=== PATIENT | male | born 1945 | race Caucasian/White ===

== ENCOUNTER → 2018-09-22 | Outpatient (CLI) | payer OTHER | LOC: BHFA 10:15 | PROVIDERS: ATTEND Nurse Practitioner Adult Health | DX: I25.10 Atherosclerotic heart disease of native coronary artery without angina pectoris (principal); I10 Essential (primary) hypertension; E78.5 Hyperlipidemia, unspecified; Z95.5 Presence of coronary angioplasty implant and graft ==

== ENCOUNTER 2018-10-08 11:24 | Day surgery (SDC) | payer OTHER ==
[2018-10-08] MEDS ORDERED: ASPIRIN EC 325 MG TAB PO ONE ×2 (11:27→11:55)
[2018-10-08] MEDS ORDERED: DIAZEPAM 5 MG TAB PO ONE (11:27)
[2018-10-08] MEDS ORDERED: FAMOTIDINE 20 MG TAB PO ONE (11:27)
[2018-10-08] MEDS ORDERED: NS 1,000 ML IV ONE (11:27)
[2018-10-08] MEDS ORDERED: diphenhydrAMINE 25 MG CAP PO ONE ×2 (11:27→11:54)
[2018-10-08] MEDS ORDERED: FAMOTIDINE 20 MG TAB ONE (11:55)
[2018-10-08] MEDS ORDERED: DIAZEPAM 5 MG TAB ONE (11:57)
[2018-10-08] MEDS ORDERED: LIDOCAINE 1% 300 MG/30 ML SDV ONE (12:17)
[2018-10-08] MEDS ORDERED: MIDAZOLAM 2 MG/2 ML VIAL ONE (12:18)
[2018-10-08] MEDS ORDERED: fentaNYL 100 MCG/2 ML INJ ONE (12:18)
[2018-10-08] MEDS ORDERED: IOPAMIDOL (ISOVUE-370) 150 ML BTL IV ONE (12:19)
[2018-10-08 12:31] LABS: PLATELET COUNT 223 10^3/uL (150-400)
[2018-10-08 12:44] LABS: INR 0.99 (0.83-1.16); PROTIME(PATIENT) 13.3 SEC (12.0-15.0)
--- NOTE | 2018-10-08 13:25 | PDPROPOC ---
Sedation Plan of Care Sedation Plan of Care: vital signs stable, mental status noted, patient educated of risks, benefits, alternatives, patient can tolerate sedation ASA Classification: ASA 2 Planned drugs: fentanyl, midazolam Mallampati Score: Class 1 Mallampati Reference Image: Patient passed 3-3-2 rule?: Yes
--- NOTE | 2018-10-08 13:25 | PDHPUP ---
History & Physical Update H&P update statement: This history and physical update is based on an assessment of the patient which was completed after admission or registration (within 24 hours), but prior to the surgery/procedure. H&P update: H&P reviewed & patient examined, no change in patient's condition since H&P completed
[2018-10-08] MEDS ORDERED: HEPARIN 10,000 UNIT/10 ML MDV (1,000 UNIT/ML) ONE (13:37)
[2018-10-08] MEDS ORDERED: VERAPAMIL 5 MG/2 ML VIAL ONE (13:37)
--- NOTE | 2018-10-08 14:02 | PDDXCAT ---
Diagnostic Cath Note - . Date: 10/08/18 Pbx Operator: Malik Indication: Class I/II angina, intolerance to med therapy or failure to respond - Procedure Access: right wrist Procedure: left heart catheterization, coronary angiography, left ventriculogram - Materials Left Heart Cath size: 5F Left Heart Cath materials: pigtail, other ([place]) - Findings-Left Heart Catheterization LM: Unobstructed LAD: Stents widely patent. Diagonal has reconstituted self from last angiogram of 2002 LCX: Dominant vessel giving rise to the posterior descending coronary artery RCA: Non dominant: 100% occluded with bridging collaterals. EDP: 12 mm of mercury LVEF: 70% Wall motion: None Complications: None Estimated blood loss: <50ml Closure method: TR Band Assessment: Patent LAD stent. Chronically occluded nondominant right coronary likely responsible for abnormal stress test. Normal LV systolic function with normal filling pressures Plan: Continue aggressive secondary prevention with clinical follow-up Patient Problems: Problems Problem Status Onset Hypoxia Active Asthma Active Fever Active Dyspnea Active
--- NOTE | 2018-10-08 19:26 | CPEKG ---
Test Reason : OPEN Blood Pressure : / mmHG Vent. Rate : 070 BPM Atrial Rate : 072 BPM P-R Int : 146 ms QRS Dur : 089 ms QT Int : 415 ms P-R-T Axes : 012 028 -09 degrees QTc Int : 448 ms Sinus rhythm Borderline T abnormalities, inferior leads Confirmed by Faith Mills ([id number]) on 10/08/2018 7:26:11 PM Referred By: Confirmed By:Faith Mills
== END 2018-10-08 17:48 | disposition home or self-care (01) ==
LOC: FCATH 11:24
PROVIDERS: ATTEND Internal Medicine Interventional Cardiology
PROC: 4A023N7 Measurement of Cardiac Sampling and Pressure, Left Heart, Percutaneous Approach (ICD-10-PCS; principal; 2018-10-08)
PROC: B2111ZZ Fluoroscopy of Multiple Coronary Arteries using Low Osmolar Contrast (ICD-10-PCS; 2018-10-08)
PROC: B2151ZZ Fluoroscopy of Left Heart using Low Osmolar Contrast (ICD-10-PCS; 2018-10-08)
DX: I25.10 Atherosclerotic heart disease of native coronary artery without angina pectoris (principal); I25.82 Chronic total occlusion of coronary artery; I12.9 Hypertensive chronic kidney disease with stage 1 through stage 4 chronic kidney disease, or unspecified chronic kidney disease; N18.9 Chronic kidney disease, unspecified; I25.2 Old myocardial infarction; E78.5 Hyperlipidemia, unspecified; J45.20 Mild intermittent asthma, uncomplicated; Z95.5 Presence of coronary angioplasty implant and graft; Z79.82 Long term (current) use of aspirin
CPT/HCPCS: 78452; 93005; 93017; 93458; A9500; C1769; J1644; J2250; J3010; Q9967

== ENCOUNTER → 2018-10-22 | Outpatient (CLI) | payer OTHER | LOC: FIMAGING 10:01 | PROVIDERS: ATTEND Internal Medicine Critical Care Medicine | DX: R06.02 Shortness of breath (principal); R53.1 Weakness; J45.909 Unspecified asthma, uncomplicated; M47.9 Spondylosis, unspecified ==

== ENCOUNTER → 2018-11-20 | Outpatient (CLI) | payer OTHER | LOC: FIMAGING 08:46 | PROVIDERS: ATTEND Psychiatry & Neurology Neurology | DX: Z98.1 Arthrodesis status (principal); M53.82 Other specified dorsopathies, cervical region; M50.31 Other cervical disc degeneration, high cervical region ==

== ENCOUNTER → 2019-01-23 | Outpatient (CLI) | payer OTHER | LOC: FIMAGING 08:15 | PROVIDERS: ATTEND Internal Medicine Critical Care Medicine | DX: J84.10 Pulmonary fibrosis, unspecified (principal); I25.10 Atherosclerotic heart disease of native coronary artery without angina pectoris; J45.909 Unspecified asthma, uncomplicated; Z95.5 Presence of coronary angioplasty implant and graft ==

== ENCOUNTER 2019-03-23 20:59 | Inpatient (IN) | payer OTHER ==
--- NOTE | 2019-03-23 21:09 | EDPHY ---
H & P Time Seen by Provider: 03/23/19 21:00 HPI/ROS: CHIEF COMPLAINT: Syncope and head injury HISTORY OF PRESENT ILLNESS: EMS was called when the was down stairs and heard a "thud" upstairs in the bathroom. When EMS arrived he was face down in the bathroom. No seizure activity reported. The patient does not remember falling and does not recall how he got on the floor of the bathroom. He specifically does not recall any prodrome. Currently just feels a little bit dizzy and lightheaded. On arrival he complains of a left tooth pain anterior, and some pain around his left face. Denies chest pain or shortness of breath. No neck or back pain and no weakness or numbness in extremities. REVIEW OF SYSTEMS: Eye: no change in vision ENT: no sore throat Cardiac: HPI Pulmonary: no cough or SOB Abdomen: no vomiting, no abdominal pain. Has had some recent diarrhea. Musculoskeletal: no back pain Skin: Abrasion on the nose Neuro: no headache Constitutional: no fever : no urinary symptoms A comprehensive 10 point review of systems is otherwise negative aside from elements mentioned in the history of present illness. PAST MEDICAL HISTORY: Coronary disease with stenting, previous syncope which was thought to be vasovagal in 2008, nephrolithiasis Social history: General Appearance: Alert and conversant, cooperative. Eyes: No scleral icterus. Pupils equal reactive extraocular motion intact. ENT, Mouth: Normal mucous membranes. No tongue laceration or abrasion. Chipped Walker 1 left front incisor without evidence of root exposure. Respiratory: Normal respiratory effort, breath sounds equal, lungs are clear to auscultation. Cardiovascular: Regular rate and rhythm. Gastrointestinal: Abdomen is soft and non tender. Neurological: Alert, face symmetric, normal motor and sensory in extremities. Oriented to place but not to year. Poor short-term memory. Does not remember the event. Skin: Superficial 1 cm laceration on the bridge of the nose. Musculoskeletal: No midline spinal or extremity tenderness. Psychiatric: Not agitated. Emergency Department course/MDM: EKG initially shows sinus rhythm without ischemic changes. Head CT for head trauma given age and loss of consciousness. Did not clear cervical spine as he is not oriented x3. 956: Negative head and cervical spine CT for trauma per Dr. Macias. Admission for syncope in a patient with known coronary disease, cardiac monitoring. Likely has some element of dehydration with decreased CO2, elevated BUN and creatinine. IV normal saline 1 L given in the ED for syncope, possible dehydration, history of recent diarrhea. Smoking Status: Never smoked Constitutional: Initial Vital Signs Temperature (C) 36.7 C 03/23/19 21:03 Heart Rate 73 03/23/19 21:03 Respiratory Rate 18 03/23/19 21:03 Blood Pressure 108/73 03/23/19 21:03 O2 Sat (%) 97 03/23/19 21:03 O2 Delivery Mode Room Air Allergies/Adverse Reactions: No Known Allergies Allergy (Verified 03/23/19 21:02) Home Medications: Medication Instructions Recorded Azelastine [Astelin Nasal Bradley 1 sprays EACHNARE BID 05/16/12 (RX)] Ramipril [Altace 2.5mg (RX)] 2.5 mg PO DAILY 05/16/12 Aspirin [Aspirin 81mg (*)] 81 mg PO DAILY 10/08/18 Albuterol Sulfate [Proair Hfa] 1 - 2 puffs IH Q4-6PRN PRN 03/23/19 Levothyroxine [Synthroid 75 mcg 75 mcg PO DAILY06 03/23/19 (*)] Metoprolol Tartrate [Lopressor 25 12.5 mg PO BID 03/23/19 mg (*)] Pantoprazole Sodium [Protonix 40mg 40 mg PO HS 03/23/19 (*)] Pravastatin Sodium 20 mg PO DAILY 03/23/19 diphenhydrAMINE [Benadryl 25 MG 50 mg PO HS 03/23/19 (*)] predniSONE 7.5 mg PO DAILY 03/23/19 Medical Decision Making - Diagnostics EKG Interpretation: 12-lead EKG interpreted by me; official reading is in computer system. My interpretation is sinus rhythm without ischemic changes. Imaging Results: Imaging Impressions Cervical Spine CT 03/23/19 21:09 Impression: 1. Negative for intracranial posttraumatic sequela. 2. Elderly brain with atrophy and probable white matter small vessel disease. CT Cervical Spine Without Contrast History: Trauma. Technique: Multislice helical CT through the cervical spine without contrast from the skull base to T1. Soft tissue and bone evaluation is performed. Sagittal and coronal reconstructions are obtained and reviewed. Dose reduction techniques were utilized. Findings: Negative for fracture. There is straightening of the normal cervical curvature associated with anterior cervical fusion from C4 to the C6-C7 level. Prevertebral soft tissues appear normal. There is reversal the normal cervical curvature. Multilevel degenerative changes are seen with facet and uncovertebral arthropathy resulting in neural foraminal impingement at multiple levels. There is bony spurring at the C4-C5 level which results in canal stenosis more pronounced towards the right side. Impression: Negative for fracture with multilevel degenerative changes noted. Results called and discussed with DOLLY BOYKIN M.D. on 03/23/2019 at 21:55. Head CT 03/23/19 21:09 Impression: 1. Negative for intracranial posttraumatic sequela. 2. Elderly brain with atrophy and probable white matter small vessel disease. CT Cervical Spine Without Contrast History: Trauma. Technique: Multislice helical CT through the cervical spine without contrast from the skull base to T1. Soft tissue and bone evaluation is performed. Sagittal and coronal reconstructions are obtained and reviewed. Dose reduction techniques were utilized. Findings: Negative for fracture. There is straightening of the normal cervical curvature associated with anterior cervical fusion from C4 to the C6-C7 level. Prevertebral soft tissues appear normal. There is reversal the normal cervical curvature. Multilevel degenerative changes are seen with facet and uncovertebral arthropathy resulting in neural foraminal impingement at multiple levels. There is bony spurring at the C4-C5 level which results in canal stenosis more pronounced towards the right side. Impression: Negative for fracture with multilevel degenerative changes noted. Results called and discussed with DOLLY BOYKIN M.D. on 03/23/2019 at 21:55. Imaging: Discussed imaging studies w/ call out clerk Radiologist Procedures: Procedure: Laceration repair. Verbal consent was obtained from the patient. The 1 cm laceration on the bridge of the nose was cleaned with standard emergency department protocol, draped and explored. There were no deep structures involved. No foreign body found. The wound was repaired with wound adhesive. The wound repair was simple. Excellent hemostasis was obtained. Wound care instructions were discussed and the patient was warned regarding scarring. The procedure was performed by myself. Differential Diagnosis: Differential diagnosis considered for syncope including but not limited to vasovagal syncope, arrhythmia, dehydration, and blood loss. Differential diagnosis considered for head injury including but not limited to concussion, skull fracture, intraparenchymal contusion, subarachnoid, subdural and epidural hematoma. Consult/Admit Bed Type: Dr. Pnen 9809 - Data Points Laboratory Results: Laboratory Results 03/23/19 21:35 03/23/19 21:35 03/23/19 03/23/19 03/23/19 22:02 21:37 21:35 WBC RBC Hgb Hct MCV MCH MCHC RDW Plt Count MPV Neut % (Auto) Lymph % (Auto) Sandoval % (Auto) Eos % (Auto) Baso % (Auto) Nucleat RBC Rel Count Absolute Neuts (auto) Absolute Lymphs (auto) Absolute Monos (auto) Absolute Eos (auto) Absolute Basos (auto) Absolute Nucleated RBC Immature Gran % Immature Gran # Sodium 133 mEq/L L mEq/L (135-145) Potassium 4.6 mEq/L mEq/L (3.5-5.2) Chloride 104 mEq/L mEq/L (97-110) Carbon Dioxide 16 mEq/l L mEq/l (22-31) Anion Gap 13 mEq/L mEq/L (6-14) BUN 32 mg/dL H mg/dL (7-23) Creatinine 1.5 mg/dL H mg/dL (0.7-1.3) Estimated GFR 46 Glucose 116 mg/dL H mg/dL (70-100) Calcium 9.5 mg/dL mg/dL (8.5-10.4) POC Troponin I 0.00 ng/mL ng/mL (0.00-0.08) Ethyl Alcohol < 10 mg/dL mg/dL (0-10) 03/23/19 21:35 WBC 14.03 10^3/uL H 10^3/uL (3.80-9.50) RBC 4.67 10^6/uL 10^6/uL (4.40-6.38) Hgb 14.7 g/dL g/dL (13.7-17.5) Hct 44.2 % % (40.0-51.0) MCV 94.6 fL fL (81.5-99.8) MCH 31.5 pg pg (27.9-34.1) MCHC 33.3 g/dL g/dL (32.4-36.7) RDW 15.2 % % (11.5-15.2) Plt Count 220 10^3/uL 10^3/uL (150-400) MPV 9.2 fL fL (8.7-11.7) Neut % (Auto) 79.5 % H % (39.3-74.2) Lymph % (Auto) 14.3 % L % (15.0-45.0) Sandoval % (Auto) 5.4 % % (4.5-13.0) Eos % (Auto) 0.3 % L % (0.6-7.6) Baso % (Auto) 0.1 % L % (0.3-1.7) Nucleat RBC Rel Count 0.0 % % (0.0-0.2) Absolute Neuts (auto) 11.15 10^3/uL H 10^3/uL (1.70-6.50) Absolute Lymphs (auto) 2.00 10^3/uL 10^3/uL (1.00-3.00) Absolute Monos (auto) 0.76 10^3/uL 10^3/uL (0.30-0.80) Absolute Eos (auto) 0.04 10^3/uL 10^3/uL (0.03-0.40) Absolute Basos (auto) 0.02 10^3/uL 10^3/uL (0.02-0.10) Absolute Nucleated RBC 0.00 10^3/uL 10^3/uL (0-0.01) Immature Gran % 0.4 % % (0.0-1.1) Immature Gran # 0.06 10^3/uL 10^3/uL (0.00-0.10) Sodium Potassium Chloride Carbon Dioxide Anion Gap BUN Creatinine Estimated GFR Glucose Calcium POC Troponin I Ethyl Alcohol Medications Given: Discontinued Medications Sodium Chloride (Ns) 1,000 mls @ 0 mls/hr IV EDNOW ONE; Wide Open PRN Reason: Protocol Stop: 03/23/19 21:37 Last Admin: 03/23/19 21:39 Dose: 1,000 mls Point of Care Test Results: Chemistry 03/23/19 21:37 POC Troponin I 0.00 ng/mL ng/mL (0.00-0.08) Departure - Departure Disposition: [facility] Inpatient Acute Clinical Impression: Syncope Qualifiers: Syncope type: unspecified Qualified Code(s): R55 - Syncope and collapse Concussion Qualifiers: Encounter type: initial encounter Loss of consciousness presence/duration: with LOC of unspecified duration Qualified Code(s): S06.0X9A - Concussion with loss of consciousness of unspecified duration, initial encounter Laceration of nose Qualifiers: Encounter type: initial encounter Qualified Code(s): S01.21XA - Laceration without foreign body of nose, initial encounter Condition: Good
--- NOTE | 2019-03-23 21:13 | CPEKG ---
Test Reason : OPEN Blood Pressure : / mmHG Vent. Rate : 076 BPM Atrial Rate : 077 BPM P-R Int : 136 ms QRS Dur : 082 ms QT Int : 368 ms P-R-T Axes : 029 056 017 degrees QTc Int : 414 ms Sinus rhythm Confirmed by Dolly Boykin ([id number]) on 03/23/2019 9:13:28 PM Referred By: DOLLY BOYKIN Confirmed By:Dolly Boykin
[2019-03-23] MEDS ORDERED: NS 1,000 ML IV ONE (21:36)
[2019-03-23 21:44] LABS: PLATELET COUNT 220 10^3/uL (150-400)
[2019-03-23] MEDS ORDERED: SKIN ADHESIVE (DERMABOND) 1 EACH TP ONE (21:44)
[2019-03-23] MEDS ORDERED: ACETAMINOPHEN 325 MG TAB PO PRN (22:09)
[2019-03-23] MEDS ORDERED: ONDANSETRON DISINTEGRATING 4 MG TAB PO PRN (22:09)
[2019-03-23] MEDS ORDERED: ONDANSETRON 4 MG/2 ML VIAL IVP PRN (22:09)
--- NOTE | 2019-03-23 23:41 | PDGENHP ---
History and Physical - Chief Complaint syncope - History of Present Illness Source-patient provides history appears reliable. He does not recall the events following a syncopal episode. He does note that initially did recall what happened but at time of my interview he states he does remember falling. EMR was reviewed and case discussed with ED provider. HPI-This a pleasant 74-year-old gentleman with past medical history significant for CAD status post stenting, GERD, HTN, HLD, hypothyroidism, asthma, CHF who presents emergency department today with of a syncopal episode. Patient's heard a thud this evening and she went upstairs to find the patient face down in the bathroom. 911 was called. No seizure activity was reported to have been witnessed. Patient did have a laceration to his nose and also reports that he chipped his left front tooth. Patient reports a remote history of a syncopal episode where he also chip this tooth. Patient states that over the last day or 2 UA has not been feeling quite well with some GI upset nausea. He has also had a few episodes of nonbloody loose stools and abdominal distension/ bloating. He denies any fevers chills. He denies any recent sick contacts. Patient denies any chest pain, palpitations, shortness of breath. He reports that at time he was going to the bathroom he felt like he was going to vomit lean forward over the toilet and subsequently passed out. He does endorse some lightheadedness. He notes that he has not been taking in is much oral hydration due to his GI upset. Patient denies any current lightheadedness or changes in vision. He does continue to complain of some GI upset nausea. History Information - Allergies/Home Medication List Allergies/Adverse Reactions: No Known Allergies Allergy (Verified 03/23/19 21:02) Home Medications: Azelastine [Astelin Nasal [place] (RX)] 1 sprays EACHNARE BID 05/16/12 [Last Taken 10/08/18] Ramipril [Altace 2.5mg (RX)] 2.5 mg PO DAILY 05/16/12 [Last Taken 03/23/19] Aspirin [Aspirin 81mg (*)] 81 mg PO DAILY 10/08/18 [Last Taken 03/23/19] Albuterol Sulfate [Proair Hfa] 1 - 2 puffs IH Q4-6PRN PRN 03/23/19 [Last Taken Unknown] Levothyroxine [Synthroid 75 mcg (*)] 75 mcg PO DAILY06 03/23/19 [Last Taken 05/06] Metoprolol Tartrate [Lopressor 25 mg (*)] 12.5 mg PO BID 03/23/19 [Last Taken ] Pantoprazole Sodium [Protonix 40mg (*)] 40 mg PO HS 03/23/19 [Last Taken ] Pravastatin Sodium 20 mg PO DAILY 03/23/19 [Last Taken 03/23/19] diphenhydrAMINE [Benadryl 25 MG (*)] 50 mg PO HS 03/23/19 [Last Taken 03/23/19] predniSONE 7.5 mg PO DAILY 03/23/19 [Last Taken 03/23/19] I have personally reviewed and updated: family history, medical history, social history, surgical history - Past Medical History Additional medical history: CAD with history of stent to the LAD patent on cath 09/2018 and RCA that is now chronically occluded with collaterals. GERD, HTN, HLD, hypothyroidism, CHF, asthma, kidney stones, basal cell carcinoma, CKD stage 3 (baseline cr 1.3) - Surgical History Additional surgical history: Cervical spine fusion, inguinal hernia repair, left rotator cuff repair, carpal tunnel release, cardiac cath x2 most recently 10/07/2018 - Family History Additional family history: CAD, ALS - Social History Smoking Status: Never smoked Alcohol Use: None Drug Use: None Additional social history: Patient is lives with his spouse. He is retired. Cor status-DNR DNI. Patient reports he has advanced directives in place. Review of Systems Review of Systems: ROS: 10pt was reviewed & negative except for what was stated in HPI & below ( See HPI) Physical Exam Physical Exam: Selected Entries 03/23/19 03/23/19 21:03 23:49 Blood Pressure Automatic Method Heart Rate 73 73 Heart Rate [ 83 Sitting] Heart Rate [ 83 Standing] Heart Rate [ 73 Supine] Respiratory 18 16 Rate O2 Sat (%) 97 93 Temperature (C) 36.7 C Blood Pressure 108/73 98/71 L Blood Pressure 103/80 [Sitting] Blood Pressure 110/71 [Standing] Blood Pressure 98/71 L [Supine] Mean Arterial 84 80 Pressure (MAP) O2 Delivery Room Air Room Air Mode Blood Pressure Left Source Upper Arm Heart Rate/ Monitor Blood Pressure Left Source [Sitting Upper ] Arm Heart Rate/ Monitor Blood Pressure Left Source [ Upper Standing] Arm Heart Rate/ Monitor Blood Pressure Left Source [Supine] Upper Arm Heart Rate/ Monitor Temperature Oral Source Heart Rate Heart Rate/ Source Monitor Heart Rate Heart Rate/ Source [Sitting Monitor ] Heart Rate Heart Rate/ Source [ Monitor Standing] Heart Rate Heart Rate/ Source [Supine] Monitor Temp Pulse Resp BP Pulse Ox 36.6 C 71 10 L 104/67 93 03/23/19 22:57 03/23/19 22:57 03/23/19 22:57 03/23/19 22:57 03/23/19 22:57 Constitutional: no apparent distress, uncomfortable Eyes: PERRL, anicteric sclera, EOMI, No scleral injection Ears, Nose, Mouth, Throat: other (Chipped left incisor, tachy mucous membranes) Cardiovascular: regular rate and rhythym, no murmur, rub, or gallop, No pulses symmetric bilaterally, No edema Peripheral Pulses: 2+: dorsalis-pedis (R), dorsalis-pedis (L) Respiratory: no respiratory distress, no rales or rhonchi, clear to auscultation Gastrointestinal: normoactive bowel sounds, no palpable masses, tenderness ( Diffuse generalized tenderness to the mild palpation. No rebound or guarding.) , distension, No guarding, No rebound Genitourinary: no bladder tenderness, No luevano in urethra Skin: warm, normal color, no rashes or abrasions Musculoskeletal: full muscle strength, other (Patient moves all extremities. He is able to turn on his side and had), No generalized weakness Neurologic: AAOx3, sensation intact bilaterally, other (Grossly nonfocal exam.) , No facial droop Psychiatric: interacting appropriately, not anxious, not encephalopathic, thought process linear Lab Data & Imaging Review 03/23/19 21:35 03/23/19 21:35 WBC 14.03 10^3/uL (3.80-9.50) H 03/23/19 21:35 RBC 4.67 10^6/uL (4.40-6.38) 03/23/19 21:35 Hgb 14.7 g/dL (13.7-17.5) 03/23/19 21:35 Hct 44.2 % (40.0-51.0) 03/23/19 21:35 MCV 94.6 fL (81.5-99.8) 03/23/19 21:35 MCH 31.5 pg (27.9-34.1) 03/23/19 21:35 MCHC 33.3 g/dL (32.4-36.7) 03/23/19 21:35 RDW 15.2 % (11.5-15.2) 03/23/19 21:35 Plt Count 220 10^3/uL (150-400) 03/23/19 21:35 MPV 9.2 fL (8.7-11.7) 03/23/19 21:35 Neut % (Auto) 79.5 % (39.3-74.2) H 03/23/19 21:35 Lymph % (Auto) 14.3 % (15.0-45.0) L 03/23/19 21:35 [place] % (Auto) 5.4 % (4.5-13.0) 03/23/19 21:35 Eos % (Auto) 0.3 % (0.6-7.6) L 03/23/19 21:35 Baso % (Auto) 0.1 % (0.3-1.7) L 03/23/19 21:35 Nucleat RBC Rel Count 0.0 % (0.0-0.2) 03/23/19 21:35 Absolute Neuts (auto) 11.15 10^3/uL (1.70-6.50) H 03/23/19 21:35 Absolute Lymphs (auto) 2.00 10^3/uL (1.00-3.00) 03/23/19 21:35 Absolute Monos (auto) 0.76 10^3/uL (0.30-0.80) 03/23/19 21:35 Absolute Eos (auto) 0.04 10^3/uL (0.03-0.40) 03/23/19 21:35 Absolute Basos (auto) 0.02 10^3/uL (0.02-0.10) 03/23/19 21:35 Absolute Nucleated RBC 0.00 10^3/uL (0-0.01) 03/23/19 21:35 Immature Gran % 0.4 % (0.0-1.1) 03/23/19 21:35 Immature Gran # 0.06 10^3/uL (0.00-0.10) 03/23/19 21:35 Sodium 133 mEq/L (135-145) L 03/23/19 21:35 Potassium 4.6 mEq/L (3.5-5.2) 03/23/19 21:35 Chloride 104 mEq/L (97-110) 03/23/19 21:35 Carbon Dioxide 16 mEq/l (22-31) L 03/23/19 21:35 Anion Gap 13 mEq/L (6-14) 03/23/19 21:35 BUN 32 mg/dL (7-23) H 03/23/19 21:35 Creatinine 1.5 mg/dL (0.7-1.3) H 03/23/19 21:35 Estimated GFR 46 03/23/19 21:35 Glucose 116 mg/dL (70-100) H 03/23/19 21:35 Calcium 9.5 mg/dL (8.5-10.4) 03/23/19 21:35 POC Troponin I 0.00 ng/mL (0.00-0.08) 03/23/19 21:37 Ethyl Alcohol < 10 mg/dL (0-10) 03/23/19 22:02 Imaging Review: CT Brain (Without Contrast) History: Trauma in a 74-year-old male; unknown loss of consciousness. Comparison to the prior study October 07, 2009.. Technique: Axial computed tomographic images of the brain are obtained from the base to the vertex without contrast. Images are obtained at 5 mm thickness and reformatted at 1.5 mm. Sagittal and coronal reformations are performed and the study is reviewed at multiple window/level settings. Dose reduction techniques were utilized. Findings: Ventricles, cisterns, and sulci are widened consistent with atrophy. There is no hydrocephalus, midline shift/herniation, or epidural/subdural hematoma. No intraparenchymal hemorrhage or mass effect is identified. Hypodensities are noted in the periventricular and subcortical white matter bilaterally. No acute cortical ischemia is identified. Cerebrovascular atherosclerosis is identified. Bone windows demonstrate no displaced fractures. There is minimal mucous membrane thickening, otherwise, the paranasal sinuses and mastoid air cells are clear. Impression: 1. Negative for intracranial posttraumatic sequela. 2. Elderly brain with atrophy and probable white matter small vessel disease. CT Cervical Spine Without Contrast History: Trauma. Technique: Multislice helical CT through the cervical spine without contrast from the skull base to T1. Soft tissue and bone evaluation is performed. Sagittal and coronal reconstructions are obtained and reviewed. Dose reduction techniques were utilized. Findings: Negative for fracture. There is straightening of the normal cervical curvature associated with anterior cervical fusion from C4 to the C6-C7 level. Prevertebral soft tissues appear normal. There is reversal the normal cervical curvature. Multilevel degenerative changes are seen with facet and uncovertebral arthropathy resulting in neural foraminal impingement at multiple levels. There is bony spurring at the C4-C5 level which results in canal stenosis more pronounced towards the right side. Impression: Negative for fracture with multilevel degenerative changes noted. Results called and discussed with DOLLY BOYKIN M.D. on 03/23/2019 at 21:55. Dictated By: Nii Macias MD Visualized and Interpreted Chest x-ray results: Yes Visualized and Interpreted EKG results: Yes EKG additional interpertation: NSR in the 70s. QTC 414. No acute ST changes. Assessment & Plan Assessment: This a pleasant 74-year-old gentleman with past medical history significant for CAD status post stenting, GERD, HTN, HLD, hypothyroidism, asthma, CHF who presents emergency department today with of a syncopal episode. #Syncope (Acute) - differential diagnosis most likely of vasovagal response versus orthostatic hypotension versus less likely an arrhythmia or acute neurologic event. Patient does recall feeling nauseous and lightheaded just prior to passing out. He also notes he has had declined oral intake since his GI symptoms started. 1 L normal saline will be infused. Patient's orthostatic blood pressures did not reach the shoulder of 20 mm Hg in the systolic blood pressure but there was decline of 12mmHg. Holding metoprolol. CT head and neck negative for any acute findings. #Concussion (Acute) - concern for concussion. patient's mentation appears to been improved. He does still complain of a headache. Tylenol p.r.n. Low stimulus. #Laceration of nose (Acute) - non bleeding. #A GI upset - patient reporting acute symptoms of nausea and diarrhea. Suspect a viral source for discomfort. Positive bowel sounds on exam. Abdomen is soft but distended. Low suspicion for bowel obstruction. #Hyponatremia - suspected secondary to hypovolemia. IV fluids overnight as noted above. #CKD stage 3 - patient's creatinine is slightly above baseline at 1.5. Baseline 1.3. IV fluid hydration and repeat BMP as noted above. #Benign essential HTN- blood pressures at this time are acceptable. holding metoprolol and ramipril. #HLD - resume pravastatin. #asthma/dyspnea - patient followed by pulmonology and Rheumatology. He is currently continued on a steroid taper. #GERD - continue PPI #Hypothyroidism - resume levothyroxine. #history of CHF NOS-compensated currently. IV fluids for 1 L as noted above. Monitor fluid status closely. FEN - normal saline x1 L as noted above. Monitor sodium after fluid hydration. Cardiac diet. PPX-SCDs. Anticipate short hospital stay. Encourage mobilization. Initiate anticoagulation if patient should stay additional day. Cor status-DNR DNI. Patient reports advanced directives in place. Disposition- patient admitted observation status on PCU floor for close cardiac monitoring following syncopal episode. Anticipate less than 2 midnight stay pending overnight observation telemetry and repeat laboratory studies.
[2019-03-24] MEDS ORDERED: NS 1,000 ML IV SCH ×2 (00:30→10:45)
[2019-03-24 04:17] LABS: PLATELET COUNT 212 10^3/uL (150-400)
[2019-03-24] MEDS ORDERED: NITROGLYCERIN 0.4 MG BTL SL ONE (07:02)
[2019-03-24] MEDS ORDERED: PANTOPRAZOLE SODIUM 40 MG VIAL IVP ONE (07:20)
[2019-03-24] MEDS ORDERED: NS 500 ML IV ONE (07:27)
--- NOTE | 2019-03-24 08:34 | HOSPPROG ---
Hospitalist Progress Note Assessment/Plan: Called urgently to bedside by RN. Patient developed chest pain/epigastric pain. He was given a dose of nitroglycerin and systolic blood pressure subsequently dropped down to 60s. He was diaphoretic and felt unwell. Nitroglycerin did not significantly improve his pain. Given a 500 cc bolus and blood pressures improved to systolics greater than 90. Suspected GI etiology. Patient continues to have abdominal distension pain. Will get a KUB. He has passed flatus last BM was yesterday at home pt reporting diarrhea but none since arrival. EKG without acute changes. Troponins ordered. Suspect more GI etiology for patient's discomfort however has a significant cardiac history with last cardiac catheterization in September 2018 showing patent LAD and known chronically occluded RCA with collaterals. Additional discussion with Cardiology as per day team. Objective: Vital Signs Temp Pulse Resp BP Pulse Ox 37.4 C 82 19 111/63 90 L 03/24/19 08:00 03/24/19 08:00 03/24/19 08:00 03/24/19 08:00 03/24/19 08:00 Laboratory Results 03/24/19 03:04 03/24/19 07:46 03/23/19 03/24/19 03/25/19 05:59 05:59 05:59 Intake Total 1364 Balance 1364 ICD10 Worksheet Patient Problems: Problems Problem Status Onset Concussion Acute Laceration of nose Acute Syncope Acute Asthma Active Dyspnea Active Fever Active Hypoxia Active
--- NOTE | 2019-03-24 10:25 | HOSPPROG ---
Hospitalist Progress Note Assessment/Plan: #Syncope - suspect vagal event as occurred during BM with nausea on the toilet. Also likely volume depletion playing a role. Head CT neg, may have mild concussion. -cont IV hydration #Abdominal pain and diarrhea - no sick contacts, no recent atbx or travel. No suspicious foods. Suspect infectious etiology. Abdomen a bit distended this am -check KUB supine and upright to r/o obstruction -send GI PCR #Volume depletion 2/2 GI losses, poor oral intake - cont IVF's #Hyponatremia - mild, improved with NS #CKD stage 3 - Cr back to baseline of 1.3 after IVF's #Benign essential HTN - holding BB and BHAVIN for now #HLD - pravastatin. 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 Hill. -consider steroid induced gastritis, cont PPI #GERD - PPI #Hypothyroidism - cont levothyroxine. #Chronic dHF - euvolemic to dry this am -cont gentle IVF's, monitor volume status closely #CAD with h/o stents - had episode of CP this am, which sounded more c/w GI etiology / epigastric discomfort, see above -trop neg x2 #DVT PPLX - Lovenox #DNR #Dispo - change to inpt for ongoing evaluation of GI illness with volume depletion and syncope Subjective: Pt still feels weak. Had episode of GI discomfort this am, felt gassy and bloated, radiated into his chest. Received ntg for CP, but SBP dropped to 60's, resolved with IVF bolus. Chest pain free currently. No diarrhea here. No vomiting. Poor appetite. Objective: Vital Signs Temp Pulse Resp BP Pulse Ox 37.4 C 82 19 111/63 90 L 03/24/19 08:00 03/24/19 08:00 03/24/19 08:00 03/24/19 08:00 03/24/19 08:00 Laboratory Results 03/24/19 03:04 03/24/19 07:46 03/23/19 03/24/19 03/25/19 05:59 05:59 05:59 Intake Total 1364 Balance 1364 - Physical Exam Constitutional: no apparent distress Eyes: PERRL Ears, Nose, Mouth, Throat: moist mucous membranes Cardiovascular: regular rate and rhythym Respiratory: no respiratory distress, clear to auscultation Gastrointestinal: other (soft, mild-mod distention, mild diffuse TTP, no r/r/g, +tympanitic, +BS) Skin: warm Musculoskeletal: full muscle strength Neurologic: AAOx3 Psychiatric: interacting appropriately ICD10 Worksheet Patient Problems: Problems Problem Status Onset Concussion Acute Laceration of nose Acute Syncope Acute Asthma Active Dyspnea Active Fever Active Hypoxia Active
[2019-03-24] MEDS: PANTOPRAZOLE SODIUM 40 MG VIAL IVP SCH (10:44)
--- NOTE | 2019-03-24 16:56 | ASMTCMCOM ---
CM Note CM Note Notes: 03/24/2019 Case Management Note Pt admitted after episode of syncope. Discussed in rounds. Pt is positive for norovirus per RN. There are no therapy evals ordered today. Pt is . Case Management d/c poc: to be determined. Case Management to follow. Date Signed: 03/24/2019 04:55 PM Electronically Signed By:Thelma Blackwood RN
[2019-03-24] MEDS: predniSONE 5 MG TAB PO SCH (16:58)
[2019-03-24] MEDS: ENOXAPARIN 40 MG/0.4 ML SYR SC SCH (16:59)
--- NOTE | 2019-03-24 16:59 | PDMN ---
Medical Necessity Medical necessity: [facility] M170 Gastroenteritis, A-2 days: 74 yo w/ syncopal episode causing fall and subsequent concussion. Pt reports nausea and diarrhea prior to this.Initially OBS for workup/tx but in am pt developed CP, received nitro w/ SBP response in 60s requiring NS bolus. Pt cont to c/o abd distension and pain. Lab results + Norovirus. Pt cont to feel weak w/ poor appetite. Meets [facility] IP criteria for M170 w/ persistent dehydration and inability to maintain PO hydration beyond OBS care requiring ongoing IVF. Change to IP status 03/24/19@1002 per MD order. Hx CAD with history of stent to the LAD patent on cath 09/2018 and RCA that is now chronically occluded with collaterals. GERD, HTN, HLD, hypothyroidism, CHF, asthma, kidney stones, basal cell carcinoma, CKD stage 3 (baseline cr 1.3), Cervical spine fusion, inguinal hernia repair, left rotator cuff repair, carpal tunnel release, cardiac cath x2 most recently 10/07/2018
[2019-03-24] MEDS: AZELASTINE NASAL MDI EACHNARE SCH ×2 (17:01→21:17)
[2019-03-24] MEDS: D5W NS 1,000 ML IV SCH (20:50)
[2019-03-24] MEDS ORDERED: PANTOPRAZOLE SODIUM 40 MG TAB PO SCH (21:00)
[2019-03-25] MEDS: D5W NS 1,000 ML IV SCH ×3 (05:00→21:20)
[2019-03-25] MEDS: LEVOTHYROXINE 75 MCG TAB PO SCH (05:16)
[2019-03-25] MEDS: ENOXAPARIN 40 MG/0.4 ML SYR SC SCH (09:29)
[2019-03-25] MEDS: PANTOPRAZOLE SODIUM 40 MG VIAL IVP SCH (09:31)
[2019-03-25] MEDS: ASPIRIN 81 MG CHEWABLE TAB PO SCH (09:40)
[2019-03-25] MEDS: predniSONE 5 MG TAB PO SCH (09:42)
[2019-03-25] MEDS: PRAVASTATIN SODIUM 20 MG TAB PO SCH (09:42)
[2019-03-25] MEDS: AZELASTINE NASAL MDI EACHNARE SCH ×2 (09:42→21:20)
[2019-03-25] MEDS ORDERED: HALOPERIDOL LACT 5 MG/ML INJ IVP PRN (09:55)
--- NOTE | 2019-03-25 09:55 | HOSPPROG ---
Hospitalist Progress Note Assessment/Plan: #Norovirus - has had abdominal pain, diarrhea, vomiting and fever, xray yest with ileus vs SBO. No diarrhea overnight, but copious vomiting last night, ng tube placed -cont supportive care, mIVF's #Ileus - NG tube for decompression given vomiting and distention yesterday. Exam improved today, abdomen softer, less distended, less tender. -repeat abd xray in am -bowel rest: cont ng tube today, NPO, IVF's -surgery consult if condition worsens #Volume depletion 2/2 GI losses, poor oral intake - cont IVF's #Syncope - presenting symptom. Suspect vagal event as occurred during BM with nausea on the toilet. Also likely volume depletion played a role. Head CT neg , may have mild concussion. -cont IV hydration #Hypoxemia - suspect atelectasis / splinting due to abdominal pain -check CXR #Hyponatremia - mild, improved with NS #CKD stage 3 - Cr back to baseline of 1.3 after IVF's #Benign essential HTN - holding BB and BHAVIN for now #HLD - pravastatin. 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 Hill. -consider steroid induced gastritis, cont PPI #GERD - PPI #Hypothyroidism - cont levothyroxine. #Chronic dHF - euvolemic to dry this am -cont gentle IVF's, monitor volume status closely #CAD with h/o stents - had episode of CP this am, which sounded more c/w GI etiology / epigastric discomfort, see above -trop neg x2 #Agitation / delirium - prn haldol #DVT PPLX - Lovenox #DNR #Dispo - cont inpt, PT/OT evals, pt very weak, may need SNF Subjective: Pt is very weak. Had lg volume emesis last night with increased abdominal distention, now NPO with NG tube, says abdomen less tender. T max last night 39.2. No CP or SOB, new O2 requirment this am 2 LPM. No diarrhea last night or this am. Objective: Vital Signs Temp Pulse Resp BP Pulse Ox 37.3 C 98 18 106/74 91 L 03/25/19 08:00 03/25/19 08:00 03/25/19 08:00 03/25/19 08:00 03/25/19 08:00 Microbiology 03/24/19 10:42 Gastrointestinal Tract Panel (PCR) - Final Stool Norovirus Gi/Gii 03/24/19 03/25/19 03/26/19 05:59 05:59 05:59 Intake Total 1635 Output Total 850 125 Balance 785 -125 - Physical Exam Constitutional: no apparent distress Eyes: PERRL Ears, Nose, Mouth, Throat: moist mucous membranes Cardiovascular: regular rate and rhythym, other (right basilar crackles) Respiratory: no respiratory distress, clear to auscultation Gastrointestinal: other (soft, minimal distention (improved from yest), non- tender, +BS, no peritoneal signs) Skin: warm Musculoskeletal: full muscle strength, generalized weakness Neurologic: AAOx3 ICD10 Worksheet Patient Problems: Problems Problem Status Onset Concussion Acute Laceration of nose Acute Syncope Acute Asthma Active Dyspnea Active Fever Active Hypoxia Active
[2019-03-26] MEDS: D5W NS 1,000 ML IV SCH ×2 (04:36→12:24)
[2019-03-26] MEDS: LEVOTHYROXINE 75 MCG TAB PO SCH (05:50)
[2019-03-26] MEDS: ASPIRIN 81 MG CHEWABLE TAB PO SCH (09:12)
[2019-03-26] MEDS: predniSONE 5 MG TAB PO SCH (09:12)
[2019-03-26] MEDS: PRAVASTATIN SODIUM 20 MG TAB PO SCH (09:13)
[2019-03-26] MEDS: PANTOPRAZOLE SODIUM 40 MG VIAL IVP SCH (09:13)
[2019-03-26] MEDS: AZELASTINE NASAL MDI EACHNARE SCH ×2 (09:13→21:56)
[2019-03-26] MEDS: ENOXAPARIN 40 MG/0.4 ML SYR SC SCH (09:13)
--- NOTE | 2019-03-26 13:47 | HOSPPROG ---
Hospitalist Progress Note Assessment/Plan: #Norovirus - has had abdominal pain, diarrhea, vomiting and fever, xray yest with ileus, better today. No more diarrhea. -cont supportive care, will decrease rate of IVF's #Ileus - Required NG tube yesterday for decompression due to vomiting, NG tube out today, ileus resolving by rpt XR, pers reviewed/interp -advance diet as tolerated #Volume depletion 2/2 GI losses, poor oral intake - cont IVF's, decrease to 50/ hr and likely off in am if BP's better #Syncope - presenting symptom. Suspect vagal event as occurred during BM with nausea on the toilet. Also likely volume depletion played a role. Head CT neg , may have mild concussion. -cont IV /PO hydration #Hypoxemia - suspect atelectasis / splinting due to abdominal pain -improving, now on room air #Hyponatremia - mild, improved with NS #CKD stage 3 - Cr back to baseline of 1.3 after IVF's #Benign essential HTN - holding BB and BHAVIN for now due to low BP's #HLD - pravastatin. 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 Hill. #GERD - PPI #Hypothyroidism - cont levothyroxine. #Chronic dHF - euvolemic this am -cont gentle IVF's, monitor volume status closely #CAD with h/o stents - had episode of CP on arrival, which sounded more c/w GI etiology / epigastric discomfort, see above -trop neg x2 #Metabolic encephalopathy - mentation improved -prn haldol #DVT PPLX - Lovenox #DNR #Dispo - cont inpt, PT/OT evals, strength improving, SNF vs home Subjective: Pt doing better. No more vomiting. NG tube out. No more diarrhea. Afebrile. Tolerating clears today. Objective: Vital Signs Temp Pulse Resp BP Pulse Ox 36.6 C 71 16 98/70 L 95 03/26/19 11:20 03/26/19 11:20 03/26/19 11:20 03/26/19 11:20 03/26/19 11:20 Laboratory Results 03/26/19 03:12 03/25/19 03/26/19 03/27/19 05:59 05:59 05:59 Intake Total 1635 2829 Output Total 850 1275 225 Balance 785 1554 -826 - Physical Exam Constitutional: no apparent distress Eyes: PERRL Ears, Nose, Mouth, Throat: moist mucous membranes Cardiovascular: regular rate and rhythym Respiratory: no respiratory distress, clear to auscultation Gastrointestinal: normoactive bowel sounds, other (soft, mild distention, nontender, hypoactive BS, ) Skin: warm Musculoskeletal: full muscle strength Neurologic: AAOx3 Psychiatric: interacting appropriately ICD10 Worksheet Patient Problems: Problems Problem Status Onset Concussion Acute Laceration of nose Acute Syncope Acute Asthma Active Dyspnea Active Fever Active Hypoxia Active
[2019-03-27] MEDS: LEVOTHYROXINE 75 MCG TAB PO SCH (06:21)
[2019-03-27 08:24] VITALS: BP 127/87
[2019-03-27] MEDS: PRAVASTATIN SODIUM 20 MG TAB PO SCH (09:15)
[2019-03-27] MEDS: PANTOPRAZOLE SODIUM 40 MG VIAL IVP SCH (09:15)
[2019-03-27] MEDS: predniSONE 5 MG TAB PO SCH (09:15)
[2019-03-27] MEDS: ASPIRIN 81 MG CHEWABLE TAB PO SCH (09:15)
[2019-03-27] MEDS: ENOXAPARIN 40 MG/0.4 ML SYR SC SCH (09:16)
[2019-03-27] MEDS: AZELASTINE NASAL MDI EACHNARE SCH (10:07)
--- NOTE | 2019-03-27 10:32 | ASMTCMCOM ---
CM Note CM Note Notes: Patient has been cleared by PT/OT for home - he doesn't want to be homebound status so has declined home care. in support of plan. No CM needs unless plans change. Current CM discharge plan: home Date Signed: 03/27/2019 10:31 AM Electronically Signed By:Maria Elena Cortez RN
--- NOTE | 2019-03-27 11:31 | ASMTLACE ---
LACE Length of stay for Answers: 3 days current admission Acuity / Level of Answers: Yes Care: Did the patient have an inpatient admission? Comorbidities - select Answers: Congestive heart failure all that apply Coronary Artery Disease Mild liver or renal disease Previous myocardial infarction Other Notes: HTN; HLD; Hypothyroid # of Emergency department Answers: 1-2 visits in the last 6 months Score: 15 Date Signed: 03/27/2019 11:29 AM Electronically Signed By:Maria Elena Cortez RN
--- NOTE | 2019-03-27 16:35 | PDDCSUM ---
Discharge Summary Discharge Summary: Discharge diagnosis Norovirus Nausea and vomiting Volume depletion Syncope Hypoxemia Hyponatremia CKD stage 3 Hypertension Poly myositis Hyporthyroidism Ileus Metabolic encephalopathy The patient was admitted with metabolic encephalopathy along with nausea vomiting and dehydration. GI panel was obtained which was positive for norovirus. Patient was given IV fluids and electrolytes. He recovered well with resolution of his nausea vomiting and renal function. However he did develop a ileus requiring placement of an NG tube for decompression due to a substantial vomiting. Repeat abdominal film showed resume resolution of his ileus and the patient's diet was able to be advanced. He was able to tolerate p. O. And passed bowel movements. The patient was seen by Physical therapy and was deemed to be independent in able to perform his ADLs without any need for assistance. He was discharged home to follow up with his primary care provider for further evaluation and management of his underlying polymyositis and other medical conditions. Disposition Home independent I spent over 30 min on the discharge of this patient
== END 2019-03-27 14:22 | disposition home or self-care (01) | DRG 391 ==
LOC: EDUNIT# → F2W 22:43 → OBSVTOIN 03-24 10:02
PROVIDERS: ADMIT Family Medicine; ATTEND Internal Medicine
PROC: 0HQ1XZZ Repair Face Skin, External Approach (ICD-10-PCS; principal; 2019-03-23)
PROC: 0D9670Z Drainage of Stomach with Drainage Device, Via Natural or Artificial Opening (ICD-10-PCS; 2019-03-25)
DX: A08.11 Acute gastroenteropathy due to Norwalk agent (principal); G93.41 Metabolic encephalopathy; E87.1 Hypo-osmolality and hyponatremia; I13.0 Hypertensive heart and chronic kidney disease with heart failure and stage 1 through stage 4 chronic kidney disease, or unspecified chronic kidney disease; N18.3 Chronic kidney disease, stage 3 (moderate); I50.32 Chronic diastolic (congestive) heart failure; M33.20 Polymyositis, organ involvement unspecified; R09.02 Hypoxemia; S06.0X9A Concussion with loss of consciousness of unspecified duration, initial encounter; S01.21XA Laceration without foreign body of nose, initial encounter; S02.5XXA Fracture of tooth (traumatic), initial encounter for closed fracture; W19.XXXA Unspecified fall, initial encounter; Y92.012 Bathroom of single-family (private) house as the place of occurrence of the external cause; R55 Syncope and collapse; I25.10 Atherosclerotic heart disease of native coronary artery without angina pectoris; K21.9 Gastro-esophageal reflux disease without esophagitis; E78.5 Hyperlipidemia, unspecified; E03.9 Hypothyroidism, unspecified; J45.909 Unspecified asthma, uncomplicated; Z95.5 Presence of coronary angioplasty implant and graft; Z98.1 Arthrodesis status; E86.9 Volume depletion, unspecified; Z66 Do not resuscitate
CPT/HCPCS: 84484-ER; 96374; 97116-GP; 97161-GP; G0378; G0480; J1650; J2405; J7512